=== PATIENT | female | born 1980 | race Caucasian/White ===

== ENCOUNTER 2021-06-03 08:35 | Outpatient (CLI) | payer OTHER, SELFPAY ==
--- NOTE | ~2021-06-03 | MM_ITS ---
EXAMINATION: MM screening [facility] BI w jaron HISTORY: Screening mammogram TECHNIQUE: Craniocaudal and mediolateral oblique 3-D tomosynthesis images were obtained and synthetic 2-D images were generated. CAD analysis was submitted and interpreted. COMPARISON: 06/28/2018 06/28/2017 BREAST PARENCHYMAL COMPOSITION: There are scattered areas of fibroglandular density. FINDINGS: RIGHT BREAST: There is no evidence of suspicious mass, calcification, or architectural distortion to suggest malignancy. There has been no significant interval change. LEFT BREAST: There is a possible mass in the anterior/middle third of inner breast best appreciated 6 cm from the nipple on the craniocaudal view. IMPRESSION: 1. Possible left breast mass. 2. Additional mammographic views and possible breast ultrasound are recommended. BI-RADS Category 0: Incomplete: Needs additional imaging evaluation. Reviewed, dictated and finalized at location A. [place] PARTS PROFESSIONAL IMPRESSION: 1. Possible left breast mass. 2. Additional mammographic views and possible breast ultrasound are recommended . BI-RADS Category 0: Incomplete: Needs additional imaging evaluation.
== END 2021-06-03 08:36 | disposition home or self-care (01) ==
LOC: ANHIMG 08:38
PROVIDERS: PCP Family Medicine; Visit Provider Obstetrics & Gynecology
DX: Z12.31 Encounter for screening mammogram for malignant neoplasm of breast (principal); R92.8 Other abnormal and inconclusive findings on diagnostic imaging of breast
CPT/HCPCS: 77063; 77067

== ENCOUNTER 2021-06-20 11:16 | Outpatient (CLI) | payer OTHER, SELFPAY ==
--- NOTE | ~2021-06-20 | MMUS_ITS ---
EXAMINATION: MM diagnostic silke LT w jaron, US breast LT limited HISTORY: Possible left breast mass on screening mammogram TECHNIQUE: Additional 3-D tomosynthesis images of the left breast were performed and synthetic 2-D im ages were generated. CAD analysis was submitted and interpreted. High resolution limited left breast ultrasound was performed. COMPARISON: 06/03/2021, 06/28/2018, 06/28/2017 FINDINGS: MAMMOGRAPHIC FINDINGS: A subtle asymmetry persists in the anterior/middle third of the inner breast approximately 6 cm from the nipple on the craniocaudal view. In addition, there is 4 mm obscured equal density mass/middle th ird of inner breast at the 9:00 location 10 cm from the nipple. ULTRASOUND: No definite sonographic correlate is identified for the mammographic asymmetry. There is a 6 mm mass with no posterior features or internal vascularity at the 9:00 location 8 cm from the nipple. IMPRESSION: 1. Probably benign left breast findings. 2. Recommend 6 month follow-up left diagnostic mammogram and ultrasound. BI-RADS category 3, probably benign findings. Reviewed, dictated and finalized at location A. P CONTROLLER IMPRESSION: 1. Probably benign left breast findings. 2. Recommend 6 month follow-up left diagnostic mammogram and ultrasound. BI-RADS category 3, probably benign findings.
== END 2021-06-20 11:17 | disposition home or self-care (01) ==
LOC: ANHIMG 11:18
PROVIDERS: PCP Family Medicine; Visit Provider Obstetrics & Gynecology
DX: R92.8 Other abnormal and inconclusive findings on diagnostic imaging of breast (principal)
CPT/HCPCS: 76642; 77061; 77065; G0279

== ENCOUNTER 2022-05-13 08:36 | Emergency (ER) | payer OTHER, SELFPAY ==
[2022-05-13 08:44] VITALS: BP 114/75; PULSE 84; RESP 16; TEMP 36.6; O2SAT 99
--- NOTE | 2022-05-13 08:54 | ED.URI ---
HPI - URI/Sore Throat General Chief Complaint: Upper Respiratory Infection Stated Complaint: Sinus Time Seen by Provider: 05/13/22 08:50 Source: patient Mode of arrival: ambulatory Limitations: no limitations History of Present Illness HPI Narrative: Kathe andrew is a 42-year-old female patient presenting to the clinic today with complaints of sinus pressure, nasal congestion x2 weeks. She reports that she has also felt as though she has had a low-grade temperature. She reports some yellow nasal drainage. MD elicited complaint: sore throat and nasal congestion Related Data Home Medications Medication Instructions Recorded Confirmed chromium picolinate 1,000 mcg 2,000 mcg PO DAILY 08/06/21 05/13/22 tablet Allergies Allergy/AdvReac Type Severity Reaction Status Date / Time caffeine AdvReac Severe EXACERBATES Verified 05/13/22 08:45 ANXIETY Review of Systems Review of Systems: Pertinent positives per HPI. Patient denies any fever, chills, rash, headache, visual changes, dizziness, shortness of breath, chest pain, palpitations, nausea, vomiting, diarrhea, constipation, abdominal pain, or any urinary issues. [facility] Past Medical History Medical History Anxiety Chronic low back pain without sciatica Herpes Kidney stone PMDD (premenstrual dysphoric disorder) Vitamin D deficiency Surgical History Surgical History H/O dilation and curettage H/O myomectomy H/O ovarian cystectomy H/O tubal ligation History of ankle surgery History of endometrial ablation Family History Family History Grandparent Diabetes mellitus Carcinoma of colon Family history of primary malignant neoplasm of liver Family history of malignant neoplasm of brain Family history of malignant neoplasm of breast Family history of malignant neoplasm Sibling Family history of kidney stones Mother Family history of malignant neoplasm of skin Other Family history of pancreatic cancer Social History Social History Smoking status: Never smoker Second hand tobacco smoke exposure: No Alcohol intake: current Comments At the time of my signature, I reviewed and agree with the nursing past medical, surgical, social, and family history. There is no relevant family history pertinent to the patient complaint. Exam Narrative: General: Well-developed, well nourished, in no apparent distress Head: Normocephalic, atraumatic Eyes: Pupils equally round and reactive to light bilaterally, EOM intact, sclera and conjunctive clear, no discharge, lids normal Ears: TMs intact and clear, ear canals clear, no drainage, grossly hearing normal. Nose: Nares patent, Yellow nasal discharge, moderate inflammation, maxillary and frontal sinus tenderness. Mouth: Oral pharynx without lesions or masses, good dentition, MMM. postnasal drip Neck: Supple, trachea midline, no enlargement of anterior or posterior cervical nodes, no thyroid masses or goiter palpable. Cardio: Regular rate and rhythm, s1 and s2 normal, no murmur appreciated. Resp: Clear to auscultation bilaterally, no rhonchi, rales, wheezing or rubs Course Course Emergency Course: Portions of this record may have been created with voice recognition software. Level of Care: Express Care Visit Vital Signs Vital signs: Vital Signs Temperature 36.6 C 05/13/22 08:44 Pulse Rate 84 05/13/22 08:44 Respiratory Rate 16 05/13/22 08:44 Blood Pressure 114/75 05/13/22 08:44 Pulse Oximetry 99 05/13/22 08:44 Oxygen Delivery Room Air 05/13/22 08:44 Temperature 36.6 C 05/13/22 08:44 Pulse Rate 84 05/13/22 08:44 Respiratory Rate 16 05/13/22 08:44 Blood Pressure 114/75 05/13/22 08:44 Pulse Oximetry 99 05/13/22 08:44
== END 2022-05-13 09:02 | disposition home or self-care (01) ==
PROVIDERS: Emergency Provider Nurse Practitioner Family; PCP Family Medicine
DX: J01.90 Acute sinusitis, unspecified (principal); F41.9 Anxiety disorder, unspecified
CPT/HCPCS: 99213; G0463

== ENCOUNTER 2025-04-10 03:33 | Day surgery (SDC) | payer OTHER, SELFPAY ==
--- OUTSIDE RECORDS SUMMARY | 2017-06-28 | XMS_ITS | Encounter Summary ---
Author Organization [facility] Healthcare Address [address] [place] [address] Care Team Providers Care Lactation Nurse Name Role Phone Unavailable Primary Care Provider Unavailabl e Reason for Visit * Diagnostic Imaging (Routine) - Closed Specialty Diagnoses / Procedures Referred By Contac t Referred To Contact Procedures Breast Imaging US Outside Reference Referral, Self Referral ID Status Reason Start Date Expiration Date Visits Re quested Visits Authorized [id number] Closed 02/03/2022 03/05/2023 1 1 Encounter Details Date Type Department Care Team (Late st Contact Info) Description 06/28/2017 Hospital Encounter [facility] [address] [place] [id number] Social History Tobacco Use Types Packs/Day Years Used Date Smoking Tobacco: Never Assessed Comments Unknown Sex and Gender Information Value Date Recorded Sex Assigned at Not on file Legal Sex Female 6:24 PM CDT Gender Identity Not on file Sexual Orientation Not on file documented as of this encounter Plan of Treatment Not on file documented as of this encounter Procedures Procedure Name Priority Date/Time Associated Diagnosis Comments BREAST IMAGING US OUTSIDE REFERENCE Routine 06/28/2017 12:00 AM ACCOUNT EXECUTIVE TRAINEE documented in this encounter Results * Breast Imaging US Outside Reference (06/28/2017 12:00 AM ACCOUNT EXECUTIVE TRAINEE) Impressions RAD_MAMMO_[facility] - 02/03/2022 3:35 PM CDT These images are for Reference purposes only and have not been reviewed by [facility] Radiology. There will be no report generated by a [facility] Radiologist. Narrative RAD_MAMMO_[facility] - 02/03/2022 3:35 PM CDT EXAMINATION: Images For Reference Purposes Only us Self Referral IMG MAMMO PROCEDURES Final Resul t RAD_MAMMO_[facility] documented in this encounter Visit Diagnoses Not on filedocumented in this encounter
--- OUTSIDE RECORDS SUMMARY | 2017-06-28 00:05 | XMS_ITS | Encounter Summary ---
Author Organization [facility] Healthcare Address [address] [place] [address] Care Team Providers Care Branch Sales And Service Representative Name Role Phone Unavailable Primary Care Provider Unavailabl e Reason for Visit * Diagnostic Imaging (Routine) - Closed Specialty Diagnoses / Procedures Referred By Contac t Referred To Contact Procedures Breast Imaging Diagnostic Outside Reference Referral, Self Referral ID Status Reason Start Date Expiration Date Visits Re quested Visits Authorized [id number] Closed 02/03/2022 03/05/2023 1 1 Encounter Details Date Type Department Care Team (Late st Contact Info) Description 06/28/2017 12:05 AM FURNACE CLERK Hospital Encounter [facility] ([facility]) [address] [place] [id number] Social History Tobacco Use Types Packs/Day Years [...] Priority Date/Time Associated Diagnosis Comments BREAST IMAGING MG DIAGNOSTIC OUTSIDE REFERENCE Routine 06/28/2017 12:05 AM FURNACE CLERK documented in this encounter Results * Breast Imaging Diagnostic Outside Reference (06/28/2017 12:05 AM FURNACE CLERK) Impressions RAD_MAMMO_[facility] - 02/03/2022 3:37 PM CDT These images are for Reference purposes only and have not been reviewed by [facility] Radiology. There will be no report generated by a [facility] Radiologist. Narrative RAD_MAMMO_[facility] - 02/03/2022 3:37 PM CDT EXAMINATION: Images For Reference Purposes Only us Self Referral IMG MAMMO PROCEDURES Final Resul t RAD_MAMMO_[facility] documented in this encounter Visit Diagnoses Not on filedocumented in this encounter
--- OUTSIDE RECORDS SUMMARY | 2018-06-28 | XMS_ITS | Encounter Summary ---
Author Organization [facility] Healthcare Address [address] [place] [address] Care Team Providers Care Photography Coordinator Name Role Phone Unavailable Primary Care Provider Unavailabl e Reason for Visit * Diagnostic Imaging (Routine) - Closed Specialty Diagnoses / Procedures Referred By Contac t Referred To Contact Procedures Breast Imaging Screening Outside Reference Referral, Self Referral ID Status Reason Start Date Expiration Date Visits Re quested Visits Authorized [id number] Closed 02/03/2022 03/05/2023 1 1 Encounter Details Date Type Department Care Team (Late st Contact Info) Description 06/28/2018 Hospital Encounter [facility] Radiology [facility]) [address] [place] [address] Social History Tobacco Use Types Packs/Day Years [...] Date/Time Associated Diagnosis Comments BREAST IMAGING MG SCREENING OUTSIDE REFERENCE Routine 06/28/2018 12:00 AM PAI GOW MANAGER documented in this encounter Results * Breast Imaging Screening Outside Reference (06/28/2018 12:00 AM PAI GOW MANAGER) Impressions RAD_MAMMO_[facility] - 02/03/2022 3:36 PM CDT These images are for Reference purposes only and have not been reviewed by [facility] Radiology. There will be no report generated by a [facility] Radiologist. Narrative RAD_MAMMO_[facility] - 02/03/2022 3:36 PM CDT EXAMINATION: Images For Reference Purposes Only us Self Referral IMG MAMMO PROCEDURES Final Resul t RAD_MAMMO_[facility] documented in this encounter Visit Diagnoses Not on filedocumented in this encounter
[2025-03-21 10:11] VITALS: BMI 33.5
--- OUTSIDE RECORDS SUMMARY | 2025-04-10 03:36 | XMS_ITS | Clinical Summary ---
Author Organization [facility] [address] Address [address] [place] [address] Care Team Providers Care Operator Helper Name Role Phone Alyssa Jain MD Primary Care Provider [phone] Andre Swain MD Unavailable [phone] Social History Tobacco Use Types Packs/Day Years Used Date Smoking Tobacco: Never Assessed Comments Unknown Sex and Gender Information Value Date Recorded Sex Assigned at Not on file Legal Sex Female 6:24 PM CDT Gender Identity Not on file Sexual Orientation Not on file Plan of Treatment Not on file Insurance [facility] PLUS [facility] [employer] [facility] [employer] PLUS Care Teams Operator Helper Relationship Specialty Start Date End Date Alyssa Jain MD PCP - General Family Medicine 01/31/19 Andre Swain MD [address] [address] Referring Physician Obstetrics and Gynecology 02/08/25
[2025-04-10 06:43] VITALS: BP 95/68; PULSE 84; RESP 16; TEMP 36.9; O2SAT 96; BMI 34.2
[2025-04-10] MEDS: LACTATED RINGERS 1,000 ML 150 ML IV CONT (06:58)
--- NOTE | 2025-04-10 07:04 | P.PNAN_ITS ---
Anes - Initial Pre Proc Eval Procedure: Operation Date: 04/10/25 08:00 Proposed Procedures p Screening Colonoscopy - Bran Rudolph MD Date/Time: 04/10/25 07:04 Surgeon: Bran Rudolhp MD Pre Op Diagnosis: Encounter for screening for malignant neoplasm of Patient Data Age: 45 Gender: F Height: 1.78 m Weight: 108.4 kg Last Vital Signs Temp 36.9 C 04/10/25 06:43 Pulse 84 04/10/25 06:43 Resp 16 04/10/25 06:43 BP 95/68 L 04/10/25 06:43 Pulse Ox 96 04/10/25 06:43 O2 Del Method Room Air 04/10/25 06:43 Allergies Allergy/AdvReac Type Severity Reaction Status Date / Time caffeine AdvReac Severe EXACERBATES Verified 04/10/25 06:42 ANXIETY Home Medications ?Medication ?Instructions ?Recorded ?Confirmed ?Type chromium picolinate 1,000 mcg 2,000 mcg PO DAILY 08/0604/10/25 History tablet solifenacin 5 mg tablet (Vesicare) 5 mg PO DAILY #90 t abs 11/27/24 04/10/25 Rx lamotrigine 100 mg tablet See Rx Instructions .Route 0 12/18/24 04/10/25 Rx .COMPLEX #180 tabs zolpidem 12.5 mg tablet,extended 12.5 mg PO .HS PRN in somnia #90 12/25/24 04/10/25 Rx release,multiphase (Ambien CR) tabs cholecalciferol (vitamin D3) 125 125 mcg PO DAILY #90 caps 01/11/25 04/10/25 Rx mcg (5,000 unit) capsule venlafaxine 75 mg capsule,extended 225 mg (3 x 75 mg) PO DAILY #270 01/19/25 04/10/25 Rx release 24 hr caps valacyclovir 1 gram tablet 2,000 mg (2 x 1 gram) PO Q1 2H #4 01/25/25 04/10/25 Rx (Valtrex) tabs alprazolam 1 mg tablet (Xanax) 1 mg PO TID PRN sleep # 90 tabs 03/01/25 03/21/25 Rx Patient hx anesthesia problems: none Family hx anesthesia problems: none Results Review: All pre-operative results and documents have been reviewed as part of the pre- operative evaluation. [facility] Past Medical History Medical History (Updated 04/09/25 @ 15:04 by Kaleb Winter DO) Migraine Herpes Chronic low back pain without sciatica PMDD (premenstrual dysphoric disorder) Vitamin D deficiency Anxiety Kidney stone Surgical History Surgical History History of ankle surgery H/O myomectomy H/O tubal ligation H/O ovarian cystectomy H/O dilation and curettage History of endometrial ablation Family History Family History Grandparent Diabetes mellitus Carcinoma of colon Family history of primary malignant neoplasm of liver Family history of malignant neoplasm of brain Family history of malignant neoplasm of breast Family history of malignant neoplasm Sibling Family history of kidney stones Mother Family history of malignant neoplasm of skin Other Family history of pancreatic cancer Social History Social History Smoking status: Never smoker Second hand tobacco smoke exposure: No Alcohol intake: current Alcohol use details: sociallu Substance use: never Substance use type: does not use Lack of Transportation: No Lack of Food: Never True Current Housing: I Have Housing Concerned About Future Housing: No Difficulty Paying Gas/Electric Bills: No Difficulty Paying for Meds: No Currently Unemployed: No Education: Master's Degree or Higher Living arrangements: with family Occupation/Education: occupation Gender identity (if verbalized by the patient): Female Sexual Orientation (if Verbalized by the Patient): Straight or Heterosexual Spiritual care concerns: No Agree to blood products: Yes Anes - Eval Final PreProcedure Day of Procedure 04/10/25 07:04 Patient weight: obese Heart: regular rate and rhythm Lungs: clear to auscultation Airway: Mallampati scale class II Neurological: alert and oriented Last oral intake: >/= 8 hours ASA classification: II Emergent: no Anesthetic plan: proceed Anesthesia type and monitoring: general GIVS and standard monitoring Results Review: All pre-operative results and documents have been reviewed as part of the pre- operative evaluation. Informed Consent: The patient's anesthetic plan and its attendant risks and benefits were discussed with the patient/family/POA. Questions were solicited and answers provided to the satisfaction of the patient/family/POA.
--- NOTE | 2025-04-10 07:56 | P.HP_ITS ---
H&P: HPI History of Present Illness Date/Time: 04/10/25 07:56 Chief Complaint: Screening colonoscopy Narrative: This is the patient's first colonoscopy. There are no GI symptoms and there is no family history of colorectal cancer. Review of Systems Review of Systems: All systems reviewed & are unremarkable except as noted in HPI and below PMFSH Past Medical History Medical History (Updated 04/10/25 @ 07:57 by Bran Rudolph MD) Migraine Herpes Chronic low back pain without sciatica PMDD (premenstrual dysphoric disorder) Vitamin D deficiency Anxiety Kidney stone Surgical History Surgical History History of ankle surgery H/O myomectomy H/O tubal ligation H/O ovarian cystectomy H/O dilation and curettage History of endometrial ablation Family History Family History Grandparent Diabetes mellitus Carcinoma of colon Family history of primary malignant neoplasm of liver Family history of malignant neoplasm of brain Family history of malignant neoplasm of breast Family history of malignant neoplasm Sibling Family history of kidney stones Mother Family history of malignant neoplasm of skin Other Family history of pancreatic cancer Social History Social History Smoking status: Never smoker Second hand tobacco smoke exposure: No Alcohol intake: current Alcohol use details: sociallu Substance use: never Substance use type: does not use Lack of Transportation: No Lack of Food: Never True Current Housing: I Have Housing Concerned About Future Housing: No Difficulty Paying Gas/Electric Bills: No Difficulty Paying for Meds: No Currently Unemployed: No Education: Master's Degree or Higher Living arrangements: with family Occupation/Education: occupation Gender identity (if verbalized by the patient): Female Sexual Orientation (if Verbalized by the Patient): Straight or Heterosexual Spiritual care concerns: No Agree to blood products: Yes Meds Home Medications and Allergies Home Medications ?Medication ?Instructions ?Recorded ?Confirmed ?Type chromium picolinate 1,000 mcg 2,000 mcg PO DAILY 08/0604/10/25 History tablet solifenacin 5 mg tablet (Vesicare) 5 mg PO DAILY #90 t abs 11/27/24 04/10/25 Rx lamotrigine 100 mg tablet See Rx Instructions .Route 0 12/18/24 04/10/25 Rx .COMPLEX #180 tabs zolpidem 12.5 mg tablet,extended 12.5 mg PO .HS PRN in somnia #90 12/25/24 04/10/25 Rx release,multiphase (Ambien CR) tabs cholecalciferol (vitamin D3) 125 125 mcg PO DAILY #90 caps 01/11/25 04/10/25 Rx mcg (5,000 unit) capsule venlafaxine 75 mg capsule,extended 225 mg (3 x 75 mg) PO DAILY #270 01/19/25 04/10/25 Rx release 24 hr caps valacyclovir 1 gram tablet 2,000 mg (2 x 1 gram) PO Q1 2H #4 01/25/25 04/10/25 Rx (Valtrex) tabs alprazolam 1 mg tablet (Xanax) 1 mg PO TID PRN sleep # 90 tabs 03/01/25 03/21/25 Rx Allergies Allergy/AdvReac Type Severity Reaction Status Date / Time caffeine AdvReac Severe EXACERBATES Verified 04/10/25 06:42 ANXIETY Vital Signs Vital Signs - 24 hr 04/10/25 06:43 Temperature 98.4 F Pulse Rate 84 Respiratory Rate 16 Blood Pressure 95/68 L Pulse Oximetry 96 Oxygen Delivery Room Air Exam Const: General: cooperative and healthy appearing Resp: Effort & Inspection: normal respiratory effort and able to speak in complete sentences Auscultation: clear to auscultation bilaterally Cardio: Rate: regular rate Rhythm: regular rhythm GI: Inspection: normal to inspection GI Palp: No No hepatosplenomegaly present Auscultation: normal bowel sounds Rectal Exam: deferred Skin: General skin exam: normal color Psych: Appearance: grossly normal Mental Status: mental status grossly normal Assessment and Plan Assessment and plan (1) Encounter for screening colonoscopy: Code(s): Z12.11 - Encounter for screening for malignant neoplasm of colon Status: Acute Assessment and Plan: The patient is deemed a good candidate for the procedure. Consent signed. Will proceed. Prior Studies I have reviewed the following patient records and this information was taken into consideration when formulating the assessment and plan.: previous labs, previous ER visits, previous hospitalizations and previous clinic visits
[2025-04-10 08:18] VITALS: BP 91/47; PULSE 84; RESP 18; O2SAT 100
[2025-04-10 08:21] LABS: BEDSIDEPREGUCG Negative (Negative)
[2025-04-10 08:28] VITALS: BP 100/62; PULSE 79; RESP 16; O2SAT 99
[2025-04-10 08:38] VITALS: BP 110/51; PULSE 77; RESP 18; O2SAT 100
== END 2025-04-10 08:47 | disposition home or self-care (01) ==
PROVIDERS: PCP Student in an Organized Health Care Education/Training Program; Visit Provider Internal Medicine Gastroenterology
PROC: 0DJD8ZZ Inspection of Lower Intestinal Tract, Via Natural or Artificial Opening Endoscopic (ICD-10-PCS; CPT 45378; principal; 2025-04-10 08:00)
DX: Z12.11 Encounter for screening for malignant neoplasm of colon (principal); E66.9 Obesity, unspecified; Z68.34 Body mass index [BMI] 34.0-34.9, adult
CPT/HCPCS: 45378; J2704; J7120